=== PATIENT | female | born 1945 | race Caucasian/White ===

== ENCOUNTER → 2016-08-01 | Outpatient (CLI) | payer OTHER ==
[~2016-08-01] MED LIST: ASPIRIN81 MG; PERCOCET 5-3251 TAB PO
--- NOTE | ~2016-08-01 | MR165 ---
[facility]. [facility] A Service of [facility] & [facility] RADIOLOGY TEXT RESULTS PATIENT: OLGA GARRETT LOCATION: [facility] : 49 UNIT #: [id number] AGE: [address]: Douglas Allison MD SEX: F ORDER DR: [id number] [address] [address] [id number] O MR#: [id number] Acc #: [id number] NAME: OLGA GARRETT : 1945 SEX: F STUDY DATE/TIME: 08/01/2016 13:10 UNIT: [facility] ROOM: STUDY DESCRIPTION: MR Shoulder Wo Contrast Rt Attending Physician: Douglas Allison M.D. Referring Physician: Douglas Allison M.D. Ordering Physician: Douglas Allison M.D. Primary Care Physician: Evans Chaudhary [facility] MRI CENTER REPORT This report is preliminary unless electronic signature is present. EXAM Right shoulder MRI without contrast, 08/01/2016. HISTORY 70-year-old female with right shoulder pain for 6 weeks. Limited range of motion. No prior right shoulder surgery COMPARISON None TECHNIQUE Routine, unenhanced, multiplanar, multisequence, high field MR imaging of the right shoulder was performed. FINDINGS There is mild supraspinatus and infraspinatus tendinopathy. No evidence of tear. Teres minor and subscapularis tendons are intact. Long biceps tendon is intact and well positioned in the bicipital groove. No evidence of a labral tear. Glenohumeral articular cartilage is intact. No glenohumeral effusion. Minimal degenerative change of the acromioclavicular joint. No subacromial spur. Mild inflammation of the subacromial/subdeltoid bursa. Bone marrow signal is within expected limits. Visualized musculature is unremarkable. IMPRESSION 1. Mild supraspinatus and infraspinatus tendinopathy. No evidence of a rotator cuff tear. 2. No significant labral pathology. 3. Minimal acromioclavicular joint arthrosis. [facility] A Service of [facility] & [facility] RADIOLOGY TEXT RESULTS PATIENT: OLGA GARRETT LOCATION: [facility] : [birth year] UNIT #: [id number] AGE: [address]: Douglas Allison MD SEX: F ORDER DR: 4. Mild inflammation of the subacromial/subdeltoid bursa. Dictated by... Matthias Doe M.D. THIS IS AN ELECTRONICALLY VERIFIED REPORT Matthias Doe M.D. at 08/02/2016 5:01 PM JOSÉ MIGUEL/parag TD: 08/02/2016 11:42 JOB #: [id number] MRI CENTER REPORT Page 1 of 1
== END | disposition home or self-care (01) ==
LOC: SMRI 12:12
DX: M25.511 Pain in right shoulder (principal); M75.91 Shoulder lesion, unspecified, right shoulder; M19.011 Primary osteoarthritis, right shoulder; M75.51 Bursitis of right shoulder
CPT/HCPCS: 73221

== ENCOUNTER → 2017-01-03 | Outpatient (CLI) | payer OTHER ==
--- NOTE | ~2017-01-03 | MY30 ---
[facility] A Service [facility] RADIOLOGY TEXT RESULTS PATIENT: OLGA GARRETT LOCATION: [facility] : 49 UNIT #: [id number] AGE: [address]: Jessica Medina MD SEX: F ORDER DR: [id number] [address] [address] [id number] O MR#: [id number] Acc #: [id number] NAME: OLGA GARRETT : 1945 SEX: F STUDY DATE/TIME: 01/03/2017 11:51 UNIT: [facility] ROOM: STUDY DESCRIPTION: MY SCREEN REYNALDO BILAT DIGITAL Attending Physician: Jessica Medina M.D. Referring Physician: Jessica Medina M.D. Ordering Physician: Jessica Medina M.D. Primary Care Physician: Jessica Medina M.D. MEDICAL IMAGING REPORT This report is preliminary unless electronic signature is present. EXAM Bilateral digital screening mammogram CAD, 01/03/2017 HISTORY No personal or family history of breast cancer or current complaints. COMPARISON None FINDINGS CC and MLO views were obtained of each breast utilizing digital technique and reviewed with an FDA-approved CAD device. Scattered fibroglandular densities are present bilaterally. An approximately 9 mm circumscribed nodule is seen in the subareolar left breast close to the 12 o'clock axis. Benign appearing grouping of calcifications is seen within the subareolar right breast. No architectural distortion is seen. IMPRESSION Approximately 9 mm circumscribed partially obscured nodule within the 12 o'clock subareolar left breast. Targeted diagnostic left breast ultrasound recommended for further evaluation. Patients over the age of 40 are entered into a reminder system with target due date for the next mammogram. A result letter will also be sent to the patient. BIRADS 0 Incomplete: Need Additional Imaging Evaluation and/or Prior Mammograms for Comparison Dictated by... [facility] A Service [facility] RADIOLOGY TEXT RESULTS PATIENT: OLGA GARRETT LOCATION: [facility] : 49 UNIT #: [id number] AGE: [address]: Jessica Medina MD SEX: F ORDER DR: Clary Bearden M.D. THIS IS AN ELECTRONICALLY VERIFIED REPORT Clary Bearden M.D. at 01/06/2017 8:49 AM ELSA/joaquin TD: 01/03/2017 16:09 JOB #: [id number] MEDICAL IMAGING REPORT Page 1 of 1
== END | disposition home or self-care (01) ==
LOC: SMAM 11:13
DX: Z12.31 Encounter for screening mammogram for malignant neoplasm of breast (principal); N63 Unspecified lump in breast
CPT/HCPCS: G0202